=== PATIENT | female | born 1995 | race Caucasian/White ===

== ENCOUNTER → 2016-05-30 | Outpatient (CLI) | payer OTHER ==
--- NOTE | 2016-05-30 15:25 | Diagnostic Imaging Report ---
PROCEDURE: MRI right joint lower extremity without contrast. TECHNIQUE: Multiplanar, multisequence non contrast-enhanced MRI of the right lower extremity was accomplished. INDICATION: Right hip pain. FINDINGS: There is no suspicious marrow lesion seen. Focal low intensity lesion in the anterior superior aspect of the acetabulum measuring 5 mm is likely an incidental bone island. There is no evidence of a stress fracture or bone marrow edema. The femoral head has normal signal with no evidence of AVN. There is no significant joint effusion. The muscles have normal signal intensity. The visualized portion of the labrum appears unremarkable. The gluteal and proximal hamstring tendons appear unremarkable. There is a mild T2 hyperintense signal around the myotendinous junction of the iliopsoas and slight edema around the tendon at the femoral head level with minimal fluid in the iliopsoas bursa. This could be injury or inflammatory related. The greater trochanteric bursa is normal. IMPRESSION: Edema around the right iliopsoas tendon and myotendinous junction likely secondary to a low-grade partial tear or tendinitis. Dictated by: Dictated on workstation # [id number]
== END ==
LOC: RAD 13:18
PROVIDERS: ATTEND Internal Medicine
DX: M25.551 Pain in right hip (principal)
CPT/HCPCS: 73721